=== PATIENT | male | born 1955 | race Caucasian/White ===

== ENCOUNTER 2016-11-29 14:01 | Emergency (ER) | payer BC, OTHER ==
--- NOTE | 2016-11-29 14:15 | CPEKG ---
Heart Rate: 54 RR Interval: 1111 P-R Interval: 156 QRSD Interval: 108 QT Interval: 480 QTC Interval: 455 P Heber: 8 QRS Heber: -31 T Wave Heber: 49 EKG Severity - ABNORMAL ECG - EKG Impression: SINUS RHYTHM EKG Impression: BORDERLINE IVCD WITH LAD EKG Impression: CONSIDER ANTEROSEPTAL INFARCT Electronically Signed By: Lana Barbosa 29-Nov-2016 16:27:21
--- NOTE | 2016-11-29 14:18 | EDPHY ---
H & P Time Seen by Provider: 11/29/16 14:03 HPI/ROS: CHIEF COMPLAINT: Dizziness, off balance. HISTORY OF PRESENT ILLNESS: The patient is a 61 year old male, brought in by EMS after near syncopal event 1 hour prior to arrival. The patient was cooking by the stove and began to feel "dizzy". He became nauseous and pale. He sat down, but continued to dizzy. The patient states he's been having dizzy episodes for over 10 years, but this episode was more severe than the others. Usual dizziness causes double vision or loss of vision with off balance sensation. The dizziness typically lasts for about 30 seconds to 5 minutes. Today he felt off balance/dizzy/ nauseated for about 30 minutes before it resolved. He developed a sensation of palpitations, felt his heart was racing, and also had tingling in both upper extremities. Patient developed diaphoresis. He denies chest pain or shortness of breath. No recent cold-like symptoms. REVIEW OF SYSTEMS: Aside from elements discussed in the HPI, a comprehensive 10-point review of systems was reviewed and is negative. PAST MEDICAL HISTORY: Depression, mechanical aortic valve replacement, Aortic stenosis SOCIAL HISTORY: . VITAL SIGNS: Reviewed by me GENERAL: Well-developed, well-nourished, resting comfortably in no respiratory distress. HEENT: Atraumatic. Eyes: No icterus, no injection. No nystagmus. Mouth: moist mucous membranes. No erythema or lesions. Neck: supple with no adenopathy. LUNGS: Clear to auscultation bilaterally, no wheezes, rhonchi or rales. CARDIAC: Mechanical click and systolic murmur ABDOMEN: Soft, nontender, nondistended, bowel sounds normal. BACK: No CVA tenderness. EXTREMITIES: No trauma. No edema. Range of motion is normal throughout. NEURO: Alert and oriented, grossly nonfocal. SKIN: Warm and dry, no rash. PSYCHIATRIC: Normal mentation, no agitation. Portions of this note were transcribed by a medical technologist hematology. I personally performed a history, physical exam, medical decision making, and confirmed accuracy of information the transcribed note. - Medical/Surgical History Hx Asthma: No Hx Chronic Respiratory Disease: No Hx Diabetes: No Hx Cardiac Disease: Yes Hx Renal Disease: No Hx Cirrhosis: No Hx Alcoholism: No Hx HIV/AIDS: No Hx Splenectomy or Spleen Trauma: No Other PMH: Hernia surgery, aortic valve (mechaical), shoulder surgery, back surgery, TIA's - Social History Smoking Status: Never smoked Constitutional: Initial Vital Signs Temperature (C) 36.5 C 11/29/16 14:29 Heart Rate 64 11/29/16 14:29 Respiratory Rate 20 11/29/16 14:29 Blood Pressure 140/78 H 11/29/16 14:29 O2 Sat (%) 93 11/29/16 14:29 O2 Delivery Mode Room Air Allergies/Adverse Reactions: Penicillins Allergy (Verified 11/29/16 14:27) Home Medications: Medication Instructions Recorded Herbals/Supplements -Info Only 1 ea PO DAILY 01/10/15 Warfarin Sodium [Coumadin 2MG (*)] 7 mg PO WE@1600 01/10/15 Warfarin Sodium [Coumadin 3MG (*)] 9 mg PO SUMOTUTHFRSA@1600 01/10/15 Flomax 11/29/16 Levothyroxine 11/29/16 Multivitamins And Supplements 11/29/16 Medical Decision Making - Diagnostics EKG Interpretation: The 12 lead EKG was interpreted by myself. See hard copy and/or "tracemaster" electronic copy for interpretation: Sinus rhythm, Borderline IVCD with LAD. Imaging: X-ray: chest was obtained. I viewed the images myself on the PACS system. My interpretation of the images is: No acute findings. The radiologist interpretation is pending at this time. I discussed the x-ray findings with the patient. Results: CT scan of the head was obtained. I viewed the images independently on the PACS system. I discussed the results of the study with the radiologist. Impression: No intracranial hemorrhage, no acute findings. Please see the full radiology report. ED Course/Re-evaluation: EKG is normal. Plan to check BMP, CBC, and troponin. Chest x-ray and CT head are pending. Patient's laboratory evaluation including a troponin were normal. Patients head CT is negative. Plan to admit the patient to the hospitalist's service for further cardiac evaluation in light of the fact that he has a aortic valve replacement, long history of dizzy episodes typically described as vertiginous but today with a prolonged episode of lightheadedness, dizziness, diaphoresis, palpitations, and arm discomfort. Differential Diagnosis: Differential diagnosis of the patient's dizziness was considered including but not limited to peripheral and central causes of vertigo, cardiac arrhythmias, cardiac ischemia, electrolyte disturbances, neurologic causes, orthostatic causes including dehydration, and blood loss. Consult/Admit Bed Type: Dr. Tovar, [facility] - Data Points Laboratory Results: Laboratory Results 11/29/16 14:20 11/29/16 14:20 11/29/16 11/29/16 11/29/16 14:20 14:20 14:20 WBC 5.59 10^3/uL 10^3/uL (3.80-9.50) RBC 5.11 10^6/uL 10^6/uL (4.40-6.38) Hgb 16.1 g/dL g/dL (13.7-17.5) Hct 46.5 % % (40.0-51.0) MCV 91.0 fL fL (81.5-99.8) MCH 31.5 pg pg (27.9-34.1) MCHC 34.6 g/dL g/dL (32.4-36.7) RDW 12.9 % % (11.5-15.2) Plt Count 186 10^3/uL 10^3/uL (150-400) MPV 10.6 fL fL (8.7-11.7) Neut % (Auto) 61.4 % % (39.3-74.2) Lymph % (Auto) 25.0 % % (15.0-45.0) [place] % (Auto) 6.8 % % (4.5-13.0) Eos % (Auto) 5.7 % % (0.6-7.6) Baso % (Auto) 0.7 % % (0.3-1.7) Nucleat RBC Rel Count 0.0 % % (0.0-0.2) Absolute Neuts (auto) 3.43 10^3/uL 10^3/uL (1.70-6.50) Absolute Lymphs (auto) 1.40 10^3/uL 10^3/uL (1.00-3.00) Absolute Monos (auto) 0.38 10^3/uL 10^3/uL (0.30-0.80) Absolute Eos (auto) 0.32 10^3/uL 10^3/uL (0.03-0.40) Absolute Basos (auto) 0.04 10^3/uL 10^3/uL (0.02-0.10) Absolute Nucleated RBC 0.00 10^3/uL 10^3/uL (0-0.01) Immature Gran % 0.4 % % (0.0-1.1) Immature Gran # 0.02 10^3/uL 10^3/uL (0.00-0.10) PT 28.0 SEC H SEC (12.0-15.0) INR 2.58 H (0.83-1.16) APTT 34.9 SEC SEC (23.0-38.0) Sodium 139 mEq/L mEq/L (134-144) Potassium 4.4 mEq/L mEq/L (3.5-5.2) Chloride 105 mEq/L mEq/L (97-110) Carbon Dioxide 27 mEq/l mEq/l (22-31) Anion Gap 7 mEq/L L mEq/L (8-16) BUN 22 mg/dL mg/dL (7-23) Creatinine 1.0 mg/dL mg/dL (0.7-1.3) Estimated GFR > 60 Glucose 103 mg/dL H mg/dL (70-100) Calcium 9.5 mg/dL mg/dL (8.5-10.4) Troponin I < 0.012 ng/mL ng/mL (0-0.034) Departure - Departure Disposition: [facility] Inpatient Acute Clinical Impression: Palpitations, Mechanical heart valve present, Dizziness, Near syncope Condition: Fair Referrals: Patient,NotPresent [Unknown] - As per Instructions Report Scribed for: Lana Barbosa Report Scribed by: Elizabeth Correa Date of Report: 11/29/16 Time of Report: 14:22
[2016-11-29 14:36] LABS: % IMMATURE GRANULYOCYTES 0.4 % (0.0-1.1); ABSOLUTE IMMATURE GRANULOCYTES 0.02 10^3/uL (0.00-0.10); ADD DIFF? NO; ADD MORPH? NO; ADD SCAN? NO; ATYPICAL LYMPHOCYTE FLAG 0 (0-99); FRAGMENT RBC FLAG 0 (0-99); HEMATOCRIT 46.5 % (40.0-51.0); HEMOGLOBIN 16.1 g/dL (13.7-17.5); LEFT SHIFT FLG 0 (0-99); LIPEMIA HEMOLYSIS FLAG 90 (0-99); MEAN CELL HEMOGLOBIN 31.5 pg (27.9-34.1); MEAN CELL HEMOGLOBIN CONCENTR. 34.6 g/dL (32.4-36.7); MEAN PLATELET VOLUME 10.6 fL (8.7-11.7); PLATELET CLUMPS FLAG 0 (0-99); PLATELET COUNT 186 10^3/uL (150-400); RED BLOOD CELL COUNT 5.11 10^6/uL (4.40-6.38); RED CELL DISTRIBUTION WIDTH 12.9 % (11.5-15.2)
[2016-11-29 14:46] LABS: ANION GAP 7 mEq/L (8-16); CALCIUM 9.5 mg/dL (8.5-10.4); CARBON DIOXIDE 27 mEq/l (22-31); CHLORIDE 105 mEq/L (97-110); GLOMERULAR FILTRATION RATE > 60; GLUCOSE 103 mg/dL (70-100); POTASSIUM 4.4 mEq/L (3.5-5.2); SODIUM 139 mEq/L (134-144)
[2016-11-29 14:47] LABS: APTT 34.9 SEC (23.0-38.0); INR 2.58 (0.83-1.16)
[2016-11-29 14:58] LABS: TROPONIN I < 0.012 ng/mL (0-0.034)
[2016-11-29 17:10] VITALS: BP 129/73; PULSE 61; RESP 18; TEMP 97.5; O2SAT 93
--- NOTE | 2016-11-29 18:07 | GHP ---
DATE OF ADMISSION: 11/29/2016 CHIEF COMPLAINT: Vertigo. HISTORY OF PRESENT ILLNESS: This is a 61-year-old male who has a history of chronic sinusitis, whic h is quite severe. He also has a history of intermittent vertigo. This morning, he had an episode of vertigo that lasted about 15-30 minutes. It was more severe than usual. He did have an episode of nausea and vomiting and then before that, he had some tingling in his arms. Currently, he is hav ing no further episodes of vertigo. He has no chest pain or shortness of breath. Clearly vertigo. He has been seeing ENT in the past and has been thinking about seeing him again in the future. He denies any focal weakness. No numbness or tingling. REVIEW OF SYSTEMS: A 10-point review of systems was obtained and was negative. PAST MEDICAL HISTORY: 1. Status post mechanical aortic valve replacement. 2. History of hernia surgery. 3. Depression. 4. Chronic sinusitis. MEDICATIONS: Reviewed. SOCIAL HISTORY: No smoking or alcohol. 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 FAMILY HISTORY: Reviewed and noncontributory. PHYSICAL EXAMINATION: VITAL SIGNS: Afebrile. Blood pressure is 113/70, heart rate 60, oxygen satu ration 95% on room air. GENERAL: The patient is well developed in no apparent distress. HEENT: N onicteric sclerae. Extraocular muscles intact. No vertigo. NECK: Supple. No thyromegaly. LUNGS : Good effort. Clear to auscultation bilaterally. CARDIOVASCULAR: Regular rate and rhythm. 2/6 systolic murmur heard best at the right upper sternal border. ABDOMEN: Positive bowel sounds. Sof t, nontender, nondistended. No hepatosplenomegaly. EXTREMITIES: No clubbing, cyanosis, or edema. SKIN: Without rash. Warm, dry, intact. NEUROLOGIC: Alert and oriented x3. Cranial nerves 2-12 are grossly intact. 5/5 strength in all 4 extremities. No pronator drift. No cerebellar signs. LABORATORY DATA: CBC is normal. INR is 2.5. Chemistries normal. Troponin is negative. EKG personally reviewed and interpreted shows normal sinus rhythm with interventricular conduction d elay but nonischemic. CT scan of the head shows sinusitis. ASSESSMENT: This is a 61-year-old male with a history of sinusitis which is worsening. He also has a history of vertigo and he has presented with a vertigo episode that was worse than normal. PLAN: The patient clearly has a history of vertigo that may be related to his chronic sinusitis. H aving these episodes is not unusual, it is just more severe. He has no evidence of anything of a ce rebral infarct that could cause this. His symptoms are completely resolved. I think the patient ca n be discharged home and follow up with ENT. I did discuss an elimination diet for possible treatme nt for his chronic sinusitis. The patient did walk in the room and feels back to normal. He is agr eeable to discharge and followup with ENT. Case was discussed with the ER physician. Old records w ere reviewed and summarized in the HPI. /[id number]/MODL
== END 2016-11-29 17:48 | disposition home or self-care (01) ==
LOC: EDUNIT# → UNDOADMOB 15:53
DX: R42 Dizziness and giddiness (principal); R00.2 Palpitations; Z95.2 Presence of prosthetic heart valve; Z79.01 Long term (current) use of anticoagulants

== ENCOUNTER → 2018-01-25 | Outpatient (CLI) | payer OTHER | LOC: BHFA 09:00 | PROVIDERS: ATTEND Internal Medicine Interventional Cardiology | DX: R42 Dizziness and giddiness (principal) ==